=== PATIENT | male | born 1950 | race Caucasian/White ===

== ENCOUNTER 2016-11-27 13:50 | Observation (INO) | payer OTHER ==
[~2016-11-27] VITALS: Ht 190.5 cm; Wt 129.7 kg
[~2016-11-27 13:50] MED LIST: DIAZ5TAB PO; HYDR-971 PO
[2016-11-27] MEDS ORDERED: IV NORMAL SALINE 1000ML BAG 1,000 ML IV SCH (13:59)
[2016-11-27] MEDS ORDERED: 0.9 % SODIUM CHLORIDE 10 ML DISP.SYRIN. IV PRN (14:00)
[2016-11-27] MEDS ORDERED: dilTIAZem IV PUSH 25 MG/5 ML VIAL IVP ONE (14:00)
[2016-11-27 14:09] LABS: BASO % 1 % (0-3); EOS % 4 % (0-3); HEMATOCRIT 44.7 % (39.0-53.0); LYMPH # 1.4 x10^3/uL (1.0-4.8); LYMPH % 15 % (24-48); MEAN CORPUSCULAR HEMOGLOBIN 31 pg (25-35); MEAN CORPUSCULAR HGB CONC 34 g/dL (31-37); MEAN CORPUSCULAR VOLUME 91 fL (79-100); MONO % 7 % (0-9); NEUT % 73 % (31-73); PLATELET COUNT 224 x10^3/uL (140-400); RED BLOOD COUNT 4.89 x10^6/uL (4.30-5.70); RED CELL DISTRIBUTION WIDTH 13.4 % (11.5-14.5); WHITE BLOOD COUNT 9.3 x10^3/uL (4.0-11.0)
--- NOTE | 2016-11-27 14:16 | RAD ---
Indication: Weakness, dizziness and palpitations. Time of exam 1410 hours. Correlation is made with prior chest from 01/23/2016. FINDINGS: The heart size is normal. The lungs are clear. No pleural effusion or pneumothorax is identified. The pulmonary vascularity is normal. IMPRESSION: No acute abnormality detected.
--- NOTE | 2016-11-27 14:17 | PHYS DOC ---
Past Medical History Past Medical History: A-Fib, GERD, High Cholesterol, Hypertension Past Surgical History: Other Additional Past Surgical Histo: CARDIAC ABLATION,HERNIA,BACK Alcohol Use: Occasionally Drug Use: None Adult General Chief Complaint Chief Complaint: Palpitations HPI HPI Patient is a pleasant 56-year-old male with a history of hyperlipidemia hypertension and atrial fibrillation intermittently for last several years and history of cardiac ablation back in 2012. Since November 08, 2016 is an intermittent episodes of palpitations as he perceived as atrial fibrillation. 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 He has a little chest pressure descries as a fullness with no chest pain no radiation to his neck shoulder back or arm. Patient denies any lightheaded dizziness denies any shortness of breath denies any diaphoresis denies any focal neurologic deficits. He denies any trauma denies any recent exercise tolerance changes. Review of Systems Review of Systems Constitutional: Denies fever or chills [] Eyes: Denies change in visual acuity, redness, or eye pain [] HENT: Denies nasal congestion or sore throat [] Respiratory: Denies cough or shortness of breath [] Cardiovascular: No additional information not addressed in HPI [] GI: Denies abdominal pain, nausea, vomiting, bloody stools or diarrhea [] : Denies dysuria or hematuria [] Musculoskeletal: Denies back pain or joint pain [] Integument: Denies rash or skin lesions [] Neurologic: Denies headache, focal weakness or sensory changes [] Endocrine: Denies polyuria or polydipsia [] Current Medications Current Medications Current Medications Medications (Trade) Dose Ordered Sig/Flavia Start Time Stop Time Status Last Admin Dose Admin Diltiazem HCl (Cardizem) 20 mg 1X ONCE 11/27/16 14:00 11/27/16 14:02 DC 11/27/16 14:16 20 MG Ondansetron HCl (Zofran) 4 mg PRN Q8HRS PRN 11/27/16 15:15 11/28/16 15:14 UNV Sodium Chloride (Normal Saline Flush) 10 ml QSHIFT PRN 11/27/16 14:00 Allergies Allergies Allergies Coded Allergies Type Severity Reaction Last Updated Verified Iodine and Iodide Containing Produc Allergy Mild RASH 01/23/16 Yes Physical Exam Physical Exam Patient vital signs noted to be mildly elevated tachycardia normotensive. No tachypnea nor hypoxia Constitutional: Well developed, well nourished, no acute distress, non-toxic appearance. No diaphoresis HENT: Normocephalic, atraumatic, bilateral external ears normal, oropharynx moist, no oral exudates, nose normal. [] Eyes: PERRLA, EOMI, conjunctiva normal, no discharge. [] Neck: Normal range of motion, no tenderness, supple, no stridor. [] Cardiovascular: Irregularly irregular rhythm Lungs & Thorax: Bilateral breath sounds clear to auscultation wheezes RALES or crackles. Abdomen: Bowel sounds normal, soft, no tenderness, no masses, no pulsatile masses. [] Skin: Warm, dry, no erythema, no rash. [] Back: No tenderness, no CVA tenderness. [] Extremities: No tenderness, no cyanosis, no clubbing, ROM intact, no edema. No evidence of DVT no Homans sign. Neurologic: Alert and oriented X 3, normal motor function, normal sensory function, no focal deficits noted. [] Psychologic: Affect normal, judgement normal, mood normal. [] Current Patient Data Vital Signs Vital Signs Date Time Temp Pulse Resp B/P (MAP) Pulse Ox O2 Delivery O2 Flow Rate FiO2 11/27/16 14:58 51 19 91/57 (68) 93 Room Air 11/27/16 13:55 98.3 98.3 Lab Values Laboratory Tests Test 11/27/16 14:00 White Blood Count 9.3 x10^3/uL (4.0-11.0) Red Blood Count 4.89 x10^6/uL (4.30-5.70) Hemoglobin 15.0 g/dL (13.0-17.5) Hematocrit 44.7 % (39.0-53.0) Mean Corpuscular Volume 91 fL (79-100) Mean Corpuscular Hemoglobin 31 pg (25-35) Mean Corpuscular Hemoglobin Concent 34 g/dL (31-37) Red Cell Distribution Width 13.4 % (11.5-14.5) Platelet Count 224 x10^3/uL (140-400) Neutrophils (%) (Auto) 73 % (31-73) Lymphocytes (%) (Auto) 15 % (24-48) L Monocytes (%) (Auto) 7 % (0-9) Eosinophils (%) (Auto) 4 % (0-3) H Basophils (%) (Auto) 1 % (0-3) Neutrophils # (Auto) 6.8 x10^3uL (1.8-7.7) Lymphocytes # (Auto) 1.4 x10^3/uL (1.0-4.8) Monocytes # (Auto) 0.7 x10^3/uL (0.0-1.1) Eosinophils # (Auto) 0.4 x10^3/uL (0.0-0.7) Basophils # (Auto) 0.0 x10^3/uL (0.0-0.2) Prothrombin Time 13.3 SEC (11.7-14.0) Prothrombin Time INR 1.1 (0.8-1.1) D-Dimer (Skyla) 0.31 ug/mlFEU (0.00-0.50) Magnesium Level 1.8 mg/dL (1.8-2.4) Creatine Kinase 236 U/L (39-308) Creatine Kinase MB (Mass) 2.5 ng/mL (0.0-3.6) Creatine Kinase MB Relative Index 1.1 % (0-4) Troponin I Quantitative < 0.017 ng/mL (0.000-0.055) NU-Vwg-K-Type Natriuretic Peptide 189 pg/mL (0-124) H Lipase 129 U/L (73-393) Thyroid Stimulating Hormone (TSH) 1.481 uIU/mL (0.358-3.74) Laboratory Tests 11/27/16 14:00 EKG EKG KG dictated 11/27/2016 1354 demonstrates a 2 Coblation with RVR left axis deviation with left ventricular hypertrophy with aVL greater than 11 mV. No front desk assistant change or T-wave inversions consistent with acute ischemia. Cardiac EKG was read by Dr. Isabel. [] Radiology/Procedures Radiology/Procedures [] Course & Med Decision Making Course & Med Decision Making Pertinent Labs and Imaging studies reviewed. (See chart for details) [Patient with palpitations and A. fib and RVR on arrival at this point cardiac is normal d-dimer was normal chest x-ray is unremarkable EKG is ordered and read by me patient is pain-free at this time. Spoke with nurse practitioner covering for Dr. VILLALOBOS who agrees with admission and will see patient here in the ER again inpatient therapy for A. fib. Impression A. fib paroxysmal nature, chest pain Disposition: Admission to the hospital for anti-coagulation and cardiology evaluation.] Stable for admission. Dragon Disclaimer Dragon Disclaimer This electronic medical record was generated, in whole or in part, using a voice recognition dictation system. Departure Departure Impression: Primary Impression: Chest pain Additional Impression: Atrial fibrillation Disposition: 09 ADMITTED INPATIENT Admitting Physician: Other Condition: GOOD Referrals: PREET BAEZ (PCP) Problem Qualifiers BETTE ISABEL MD November 27, 2016 14:17
[2016-11-27 14:20] LABS: INR 1.1 (0.8-1.1); PROTHROMBIN TIME PATIENT 13.3 SEC (11.7-14.0)
[2016-11-27 14:34] LABS: MAGNESIUM 1.8 mg/dL (1.8-2.4)
[2016-11-27 14:59] LABS: CKMB MASS 2.5 ng/mL (0.0-3.6)
[2016-11-27] MEDS ORDERED: ONDANSETRON PF 4 MG/2 ML VIAL. IV PRN (15:15)
--- NOTE | 2016-11-27 15:42 | EKG ---
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
[2016-11-27] MEDS ORDERED: MAGNESIUM SULFATE 1GM 100 ML IV ONE (16:00)
--- NOTE | 2016-11-27 16:07 | PDOC2 ---
CARDIAC CONSULT DATE OF CONSULT Date of Consult DATE: 11/27/16 TIME: 15:59 REASON FOR CONSULT Reason for Consult: atrial fib REFERRING PHYSICIAN Referring Physician: Dr. Monica Alan SOURCE Source: Chart review, Patient HISTORY OF PRESENT ILLNESS HISTORY OF PRESENT ILLNESS 66 year old male with a history of atrial fibrillation and previous ablation/PVI @ [facility] in 2011. On 11/08/2016 was fatigued and drinking soda when he noted he was back in atrial fibrillation. Had palpitations and was mildly dyspneic and lightheaded, but did not develop chest heaviness or tightness. Denies syncope. Persistent PVCs and atrial fib runs as well as sustained atrial fib since then. Increased his aspirin to 325 mg daily. Had flecainide left from 2013 and tried the "pill in pocket" approach without success. As he has not been sleeping well, had his CPAP equipment checked and was told it was functioning appropriately. 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 EKG with atrial fib with RVR and rate > 100. Bolused with IV diltiazem 20 mg and now bradycardic (had taken metoprolol succinate about 0600 today). Troponin levels not consistent with AMI and no acute changes in EKG. Reason for Visit: AFIB/RVR PAST MEDICAL HISTORY Cardiovascular: AFIB (with previous ablation/PVI - 2011; DCCV in prior to 2011) , HTN, Hyperlipidemia Pulmonary: Other (SERENITY with CPAP @ 11 cm) CENTRAL NERVOUS SYSTEM: Other (denies) GI: GERD Heme/Onc: No pertinent hx Hepatobiliary: No pertinent hx Psych: No pertinent hx Musculoskeletal: No pain Rheumatologic: No pertinent hx Infectious disease: No pertinent hx ENT: Allergic Rhinitis Renal/: No pertinent hx Endocrine: No pertinent hx Dermatology: No pertinent hx PAST SURGICAL HISTORY Past Surgical History: Hernia Repair (RIH), Other (ablation/PVI; lumbar disckectomy - 1996) FAMILY HISTORY Family History: Alzheimer's Disease SOCIAL HISTORY 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 [employer] Smoke: No ALCOHOL: occassional Drugs: None Lives: with Family () CURRENT MEDICATIONS CURRENT MEDICATIONS Current Medications Medications (Trade) Dose Ordered Sig/Flavia Route PRN Reason Start Time Stop Time Status Last Admin Dose Admin Diltiazem HCl (Cardizem) 20 mg 1X ONCE IVP 11/27/16 14:00 5/9/17 14:02 DC 11/27/16 14:16 Sodium Chloride 1,000 ml @ 1,000 mls/hr Q1H IV 11/27/16 13:59 11/27/16 14:58 DC 11/27/16 14:15 ALLERGIES ALLERGIES: Coded Allergies: Iodine and Iodide Containing Produc (Verified Allergy, Mild, RASH, 01/23/16) PHYSICAL EXAM General: Alert, Oriented X3, Cooperative, No acute distress HEENT: Atraumatic, PERRLA Lungs: Clear to auscultation Heart: Normal S1, Normal S2, No murmurs, Other (tele: atrial fib; rates in the upper 50s and lower 60s) Abdomen: Normal bowel sounds, Soft, No tenderness Extremities: No edema, Normal pulses Skin: No rashes Neuro: Normal speech Psych/Mental Status: Mental status NL, Mood NL MUSCULOSKELETAL: No deformity VITALS VITALS Vital Signs Date Time Temp Pulse Resp B/P (MAP) Pulse Ox O2 Delivery O2 Flow Rate FiO2 11/27/16 14:58 51 19 91/57 (68) 93 Room Air 11/27/16 13:55 98.3 98.3 LABS Lab: Laboratory Tests Test 11/27/16 14:00 11/27/16 14:29 White Blood Count 9.3 x10^3/uL (4.0-11.0) Red Blood Count 4.89 x10^6/uL (4.30-5.70) Hemoglobin 15.0 g/dL (13.0-17.5) Hematocrit 44.7 % (39.0-53.0) Mean Corpuscular Volume 91 fL (79-100) Mean Corpuscular Hemoglobin 31 pg (25-35) Mean Corpuscular Hemoglobin Concent 34 g/dL (31-37) Red Cell Distribution Width 13.4 % (11.5-14.5) Platelet Count 224 x10^3/uL (140-400) Neutrophils (%) (Auto) 73 % (31-73) Lymphocytes (%) (Auto) 15 % (24-48) Monocytes (%) (Auto) 7 % (0-9) Eosinophils (%) (Auto) 4 % (0-3) Basophils (%) (Auto) 1 % (0-3) Neutrophils # (Auto) 6.8 x10^3uL (1.8-7.7) Lymphocytes # (Auto) 1.4 x10^3/uL (1.0-4.8) Monocytes # (Auto) 0.7 x10^3/uL (0.0-1.1) Eosinophils # (Auto) 0.4 x10^3/uL (0.0-0.7) Basophils # (Auto) 0.0 x10^3/uL (0.0-0.2) Prothrombin Time 13.3 SEC (11.7-14.0) Prothromb Time International Ratio 1.1 (0.8-1.1) D-Dimer (Skyla) 0.31 ug/mlFEU (0.00-0.50) Magnesium Level 1.8 mg/dL (1.8-2.4) Creatine Kinase 236 U/L (39-308) Creatine Kinase MB (Mass) 2.5 ng/mL (0.0-3.6) Creatine Kinase MB Relative Index 1.1 % (0-4) Troponin I Quantitative < 0.017 ng/mL (0.000-0.055) DW-Dzx-U-Type Natriuretic Peptide 189 pg/mL (0-124) Lipase 129 U/L (73-393) Thyroid Stimulating Hormone (TSH) 1.481 uIU/mL (0.358-3.74) Bedside Troponin I 0.01 ng/ml (<0.08) IMAGES IMAGES CXR: Correlation is made with prior chest from 01/23/2016. FINDINGS: The heart size is normal. The lungs are clear. No pleural effusion or pneumothorax is identified. The pulmonary vascularity is normal. IMPRESSION: No acute abnormality detected. EKG EKG atrial fib RVR; no acute changes ECHOCARDIOGRAM ECHOCARDIOGRAM pending ASSESSMENT/PLAN ASSESSMENT/PLAN 1. atrial fib with RVR Mg low - replace with 1 gram check BMP to evaluate K and renal function TSH WNL dosed with IV diltiazem 20 mg X 1 rate now upper 50s to lower 60s hold ASA and start full OAC with Eliquis 5 mg BID since symptomatic X 3 weeks now and anticipating need for DCCV or CINDY guided DCCV [id number] = 1 (HTN) with 1.3% stroke risk per year; ASA or OAC echo to re-evaluate LA size and assess LV function advised to avoid caffeine for now 2. HTN controlled with meds low normotensive for now 3. HLD treated with statin therapy check FLP in a.m. 4. SERENITY treated with CPAP recent fatigue and insomnia may benefit from repeat sleep study - suspect he needs changes in CPAP setting has pending appt with Dr. Vasu Craig @ [facility]; his sleep physician, in January Problems: LEELA BALDERRAMA APRN November 27, 2016 16:07
[2016-11-27 16:33] LABS: CALCIUM 8.7 mg/dL (8.5-10.1); GFR 75.2
[2016-11-27] MEDS: APIXABAN 5 MG TABLET. PO SCH ×2 (16:51→17:00)
[2016-11-27 19:10] VITALS: BP 142/86
[2016-11-27 23:00] VITALS: BP 124/74
--- NOTE | 2016-11-28 01:34 | HP ---
ADMIT DATE: 11/27/2016 CHIEF COMPLAINT: Chest pain. HISTORY OF PRESENT ILLNESS: The patient is a 66-year-old gentleman with known atrial fibrillation, status post ablation in 2011, currently being followed by Dr. Rothman. 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 He could feel what he calls PVCs in his chest. Also had some chest tightness across the upper chest bilaterally, which felt almost like a muscular pain. This now has completely resolved. He, however, decided that when he had these symptoms, not to proceed with flying and instead presented to the Emergency Room. On further questioning, he relates that he had issues over the past few weeks with atrial fibrillation as well as waking up in the middle of the night with his heart pounding so much so that he actually had his CPAP checked out and this was okay. He actually noted that on 11/08/2016, he had palpitations associated with mild dyspnea and lightheadedness, but without any chest tightness or other symptoms. The symptoms essentially resolved by themselves, although he apparently has been in AFib ever since. In the Emergency Room, he was noted to have atrial fibrillation with RVR above 100. He did receive a diltiazem bolus of 20 mg and had slowed heart rate now. No other labs were concerning for heart issues. He is now admitted for further observation. PAST MEDICAL HISTORY: Atrial fibrillation with previous ablation/PVI in 2011, hypertension, hyperlipidemia, obstructive sleep apnea with CPAP at night and GERD. PAST SURGICAL HISTORY: Hernia repair and lumbar diskectomy. FAMILY HISTORY: No pertinent heart history. Mother with Alzheimer's. SOCIAL HISTORY: He lives with his family. 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 Mildly stressed out over the significant changes in his life. ALLERGIES: IODINE/CONTRAST. MEDICATIONS: MAR reconciled with home medications. REVIEW OF SYSTEMS: Positive as per HPI. Feels a little stressed over, but is coming to chamber worker with the thought that his last flight in 7 weeks is probably not going to happen as he is not allowed to fly with AFib. Denies any current chest symptoms or shortness of breath. Rest of organ system review is negative. PHYSICAL EXAMINATION: VITAL SIGNS: From today show a blood pressure of 112/73, heart rate at 88, respiratory rate at 19. Of note, in the Emergency Room, initial pulse rate was 107 and dropped to 51 at its marcia after Cardizem. GENERAL: This is an obese 66-year-old gentleman, alert and oriented, in no acute distress, very pleasant. HEENT: Shows no scleral icterus. NECK: Supple. LUNGS: Clear. HEART: Irregular, no murmurs appreciated. ABDOMEN: Obese, positive bowel sounds. No organomegaly appreciated. EXTREMITIES: Show no edema. SKIN: Warm, soft and dry without any rash. LABORATORY DATA: CBC with a WBC of 9.3, hemoglobin 15, platelets of 224. Chemistries with a BUN and creatinine of 16 and 1.0, normal electrolytes. Initial troponin less than 0.017, on repeat TSH normal at 1.48. Coags within normal limits. IMAGING: Chest x-ray obtained in the Emergency Room showed no acute abnormality. ASSESSMENT AND PLAN: The patient is a 66-year-old gentleman with apparent atrial fibrillation with mild rapid ventricular response and he has received digoxin x 1. I am not sure what home medications he has taken for rate control. His head waiter/waitress, Dr. Post, has been notified. He essentially has ruled out for acute cardiac issues. Further medication changes are awaited. Although he apparently has had known atrial fibrillation over the past month, no anticoagulation has been started at this point. We will leave choice of shortest of 10A inhibitor to Dr. Rothman. The patient will be started on Lovenox for the time being. TUCKER PAREDES MD DR: LUZ MARINA/patrick JOB#: [id number] / [id number] PREET Juárez
[2016-11-28 03:02] VITALS: BP 108/69
[2016-11-28 05:49] LABS: CALCIUM 8.2 mg/dL (8.5-10.1); CREATININE 0.8 mg/dL (0.7-1.3); GFR 97.3; POTASSIUM 3.9 mmol/L (3.5-5.1)
[2016-11-28 05:53] LABS: CHOLESTEROL/HDL RATIO 2.6
[2016-11-28 07:00] VITALS: BP 123/81
--- NOTE | 2016-11-28 08:51 | EKG ---
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
--- NOTE | 2016-11-28 09:24 | PDOC ---
CARDIO Progress Notes Date and Time Date of Service 11/28/2016 Time of Evaluation 09 Subjective Subjective: No Chest Pain, No shortness of breath, No Palpitations, No Dizziness Vitals Vitals Vital Signs Date Time Temp Pulse Resp B/P (MAP) Pulse Ox O2 Delivery O2 Flow Rate FiO2 11/28/16 07:00 97.8 68 20 123/81 (95) 96 Room Air 97.8 Weight Weight [ ] Input and Output Intake and Output Intake and Output 11/28/16 07:00 Intake Total 1340 ml Balance 1340 ml Intake Oral 240 ml IV Total 1100 ml # Voids 5 Laboratory Labs Laboratory Tests Test 11/27/16 14:00 11/27/16 14:29 11/27/16 21:10 11/28/16 03:35 White Blood Count 9.3 x10^3/uL (4.0-11.0) Red Blood Count 4.89 x10^6/uL (4.30-5.70) Hemoglobin 15.0 g/dL (13.0-17.5) Hematocrit 44.7 % (39.0-53.0) Mean Corpuscular Volume 91 fL (79-100) Mean Corpuscular Hemoglobin 31 pg (25-35) Mean Corpuscular Hemoglobin Concent 34 g/dL (31-37) Red Cell Distribution Width 13.4 % (11.5-14.5) Platelet Count 224 x10^3/uL (140-400) Neutrophils (%) (Auto) 73 % (31-73) Lymphocytes (%) (Auto) 15 % (24-48) Monocytes (%) (Auto) 7 % (0-9) Eosinophils (%) (Auto) 4 % (0-3) Basophils (%) (Auto) 1 % (0-3) Neutrophils # (Auto) 6.8 x10^3uL (1.8-7.7) Lymphocytes # (Auto) 1.4 x10^3/uL (1.0-4.8) Monocytes # (Auto) 0.7 x10^3/uL (0.0-1.1) Eosinophils # (Auto) 0.4 x10^3/uL (0.0-0.7) Basophils # (Auto) 0.0 x10^3/uL (0.0-0.2) Prothrombin Time 13.3 SEC (11.7-14.0) Prothromb Time International Ratio 1.1 (0.8-1.1) D-Dimer (Skyla) 0.31 ug/mlFEU (0.00-0.50) Sodium Level 139 mmol/L (136-145) 140 mmol/L (136-145) Potassium Level 4.0 mmol/L (3.5-5.1) 3.9 mmol/L (3.5-5.1) Chloride Level 102 mmol/L (98-107) 105 mmol/L (98-107) Carbon Dioxide Level 26 mmol/L (21-32) 26 mmol/L (21-32) Anion Gap 11 (6-14) 9 (6-14) Blood Urea Nitrogen 16 mg/dL (8-26) 14 mg/dL (8-26) Creatinine 1.0 mg/dL (0.7-1.3) 0.8 mg/dL (0.7-1.3) Estimated GFR (Cockcroft-Gault) 75.2 97.3 Glucose Level 111 mg/dL (70-99) 85 mg/dL (70-99) Calcium Level 8.7 mg/dL (8.5-10.1) 8.2 mg/dL (8.5-10.1) Magnesium Level 1.8 mg/dL (1.8-2.4) 2.0 mg/dL (1.8-2.4) Creatine Kinase 236 U/L (39-308) Creatine Kinase MB (Mass) 2.5 ng/mL (0.0-3.6) Creatine Kinase MB Relative Index 1.1 % (0-4) Troponin I Quantitative < 0.017 ng/mL (0.000-0.055) < 0.017 ng/mL (0.000-0.055) < 0.017 ng/mL (0.000-0.055) FJ-Jrg-V-Type Natriuretic Peptide 189 pg/mL (0-124) Lipase 129 U/L (73-393) Thyroid Stimulating Hormone (TSH) 1.481 uIU/mL (0.358-3.74) Bedside Troponin I 0.01 ng/ml (<0.08) Triglycerides Level 75 mg/dL (0-150) Cholesterol Level 106 mg/dL (0-200) LDL Cholesterol, Calculated 50 mg/dL (0-100) VLDL Cholesterol, Calculated 15 mg/dL (0-40) Non-HDL Cholesterol Calculated 65 mg/dL (0-129) HDL Cholesterol 41 mg/dL (40-60) Cholesterol/HDL Ratio 2.6 Physical Exam HEENT: Neck Supple W Full Motion Chest: Symmetric LUNGS: Clear to Auscultation Heart: S1S2, RRR, no murmurs, other (tele: atrial fib with controlled ventricular rate - 70s) Abdomen: Soft N/T Extremities: No Edema Neurology: alert, oriented, follow commands Assessment Assessment 1. atrial fib with RVR rate controlled continue OAC with Eliquis BID plan for DCCV in about 3-4 weeks after he has been fully anticoagulated continue rate controlling agents 2. HTN controlled with meds 3. HLD LDLs controlled on statin therapy no changes recommended 4. SERENITY treated with CPAP recent fatigue and insomnia may benefit from repeat sleep study - suspect he needs changes in CPAP setting has pending appt with Dr. Vasu Craig @ [facility]; his sleep physician, in January Plan discharge for later today after seen by primary cardiology Has Leslye zabala f/u on 12/18/2016 @ 14:45 LEELA BALDERRAMA APRN November 28, 2016 09:24
--- NOTE | 2016-11-28 09:29 | CARD ---
APPROVED REPORT EXAM: Two-dimensional and M-mode echocardiogram with Doppler and color Doppler. Other Information Quality : Good Rhythm : Atrial Fibrillation INDICATION Atrial Fibrillation 2D DIMENSIONS RVDd2.9 (2.9-3.5cm)Left Atrium(2D)4.2 (1.6-4.0cm) IVSd1.2 (0.7-1.1cm)Aortic Root(2D)3.9 (2.0-3.7cm) LVDd5.2 (3.9-5.9cm)LVOT Diameter2.5 (1.8-2.4cm) PWd1.2 (0.7-1.1cm)LVDs4.2 (2.5-4.0cm) FS (%) 25.0 %LVEF(%)50.0 (>50%) Aortic Valve AoV Peak Matthew.135.9cm/sAoV VTI20.1cm AO Peak GR.7.4mmHgLVOT VTI 14.68cm AO Mean GR.3mmHgAVA (VTI)3.50cm2 Mitral Valve MV E Spkcestd07.6cm/sMV DECEL CIAN060za TDI Lateral E' P. V15.59cm/sMedial E' P. V15.79cm/s E/Lateral E'5.1E/Medial E'5.0 Tricuspid Valve TR P. Uduholux383rw/sRAP JCTLEKLI1ynNz TR Peak Gr.24eaYjTQHW30yjSg Pulmonary Vein S1 Hhbqljzb88.9cm/sS2 Ndebkzyh17.72cm/s D2 Iratelxl17.7cm/s LEFT VENTRICLE The left ventricle is normal size. There is mild concentric left ventricular hypertrophy. The left ve ntricular systolic function is normal and the ejection fraction is within normal range. The Ejection Fraction is 55%. There is normal LV segmental wall motion. Tissue Doppler imaging reveals mild left v entricular diastolic dysfunction. RIGHT VENTRICLE The right ventricle is normal size. The right ventricular systolic function is normal. ATRIA The left atrium is mildly dilated. The right atrium size is normal. The interatrial septum is intact with no evidence for an atrial septal defect or patent foramen ovale as noted on 2-D or Doppler imagi ng. AORTIC VALVE The aortic valve is sclerotic but opens well and is trileaflet. Doppler and Color Flow revealed trace aortic regurgitation. There is no significant aortic valvular stenosis. MITRAL VALVE The mitral valve is normal in structure and function. There is no evidence of mitral valve prolapse. There is no mitral valve stenosis. Doppler and Color-flow revealed mild mitral regurgitation. TRICUSPID VALVE The tricuspid valve is normal in structure and function. Doppler and Color Flow revealed mild tricusp id regurgitation. The PA pressure was estimated at 35 mmHg. There is no tricuspid valve stenosis. PULMONIC VALVE Doppler and Color Flow revealed trace pulmonic valvular regurgitation. There is no pulmonic valvular stenosis. GREAT VESSELS The aortic root is normal in size. The ascending aorta is not well seen. The IVC is normal in size an d collapses >50% with inspiration. PERICARDIAL EFFUSION There is no evidence of significant pericardial effusion. Critical Notification Critical Value: No <Conclusion> The left ventricular systolic function is normal and the ejection fraction is within normal range. Th e Ejection Fraction is 55%. There is normal LV segmental wall motion. Doppler and Color Flow revealed mild tricuspid regurgitation. The PA pressure was estimated at 35 mmH g.
[2016-11-28] MEDS: APIXABAN 5 MG TABLET. PO SCH (10:17)
[2016-11-28] MEDS ORDERED: ATOR40TA59 PO (10:24)
[2016-11-28] MEDS ORDERED: METO25TA9 PO (10:24)
[2016-11-28] MEDS ORDERED: OMEP20CA9 PO (10:24)
[2016-11-28] MEDS ORDERED: QUIN20TA7 PO (10:24)
[2016-11-28 11:00] VITALS: BP 125/75
--- NOTE | 2016-11-28 14:58 | PDOC ---
PROGRESS NOTES Chief Complaint Chief Complaint Afib w/RVR ASSESSMENT AND PLAN: 1. Afib: longstanding hx, although had (successful) cardioversion 5 yrs ago, now unfortunately recurrent. appreciate cardiology service input. obs for determination of cardioversion in near future. currently, good rate control, off any cards meds since single dose of IV cardizem 2. OAC: initiated today with eliquis 3. Dispo: home today with close F/U with Dr Rothman History of Present Illness History of Present Illness feels great, no palpitations. Vitals Vitals Vital Signs Date Time Temp Pulse Resp B/P (MAP) Pulse Ox O2 Delivery O2 Flow Rate FiO2 11/28/16 11:00 98.5 90 18 125/75 (92) 95 Room Air 98.5 Physical Exam General: Alert, Oriented X3, Cooperative, No acute distress Heart: Normal S1, Normal S2, No murmurs, Other (tele: atrial fib; rates in the upper 50s and lower 60s) Abdomen: Normal bowel sounds, Soft, No tenderness Extremities: No edema, Normal pulses Skin: No rashes Labs LABS Laboratory Tests Test 11/27/16 21:10 11/28/16 03:35 Troponin I Quantitative < 0.017 ng/mL (0.000-0.055) < 0.017 ng/mL (0.000-0.055) Sodium Level 140 mmol/L (136-145) Potassium Level 3.9 mmol/L (3.5-5.1) Chloride Level 105 mmol/L (98-107) Carbon Dioxide Level 26 mmol/L (21-32) Anion Gap 9 (6-14) Blood Urea Nitrogen 14 mg/dL (8-26) Creatinine 0.8 mg/dL (0.7-1.3) Estimated GFR (Cockcroft-Gault) 97.3 Glucose Level 85 mg/dL (70-99) Calcium Level 8.2 mg/dL (8.5-10.1) Magnesium Level 2.0 mg/dL (1.8-2.4) Triglycerides Level 75 mg/dL (0-150) Cholesterol Level 106 mg/dL (0-200) LDL Cholesterol, Calculated 50 mg/dL (0-100) VLDL Cholesterol, Calculated 15 mg/dL (0-40) Non-HDL Cholesterol Calculated 65 mg/dL (0-129) HDL Cholesterol 41 mg/dL (40-60) Cholesterol/HDL Ratio 2.6 TUCKER PAREDES MD November 28, 2016 14:58
[2016-11-28 15:00] VITALS: BP 118/77
[2016-11-28] MEDS ORDERED: APIX5TAB PO (16:40)
--- NOTE | 2016-12-01 02:02 | DS ---
DATE OF DISCHARGE: 11/28/2016 CHIEF COMPLAINT: AFib with RVR. HOSPITAL COURSE: The patient is a 66-year-old gentleman with longstanding history of AFib, status post cardioversion 5 years ago with recurrence, probably 3 weeks ago. His marketing clerk, Dr. Rothman was consulted. The patient was started on anticoagulation after rate control was achieved with initially IV Cardizem and later switched to p.o. He was discharged with close followup with Dr. Rothman for plans of repeat cardioversion on an outpatient basis. DISCHARGE EXAMINATION: Please refer to note from same date. DISCHARGE DISPOSITION: To home. DISCHARGE CONDITION: Improved. DISCHARGE DIAGNOSIS: Recurrent atrial fibrillation with rapid ventricular response. DISCHARGE MEDICATIONS: Please refer to MAR. DISCHARGE INSTRUCTIONS: The patient will follow up with Dr. Rothman in 3-4 weeks. TUCKER PAREDES MD DR: LUZ MARINA/nts JOB#: [id number] / [id number] PREET Juárez
== END 2016-11-28 18:00 | disposition home or self-care (01) ==
LOC: ER 13:50 → 4 NORTH 17:20
PROVIDERS: ADMIT Internal Medicine Hematology & Oncology; ATTEND Internal Medicine Hematology & Oncology
DX: I48.91 Unspecified atrial fibrillation (principal); I49.3 Ventricular premature depolarization; I10 Essential (primary) hypertension; E78.5 Hyperlipidemia, unspecified; G47.33 Obstructive sleep apnea (adult) (pediatric); Q87.0 Congenital malformation syndromes predominantly affecting facial appearance; E78.00 Pure hypercholesterolemia, unspecified; K21.9 Gastro-esophageal reflux disease without esophagitis; Z79.01 Long term (current) use of anticoagulants; Z82.0 Family history of epilepsy and other diseases of the nervous system
CPT/HCPCS: 36415; 71010; 80048; 80061; 82550; 82553; 83690; 83735; 83880; 84443; 84484; 85027; 85379; 85610; 93005; 93306; 96361; 96365; 96375; 99285; G0378; J3475; J3490; J7030; G0379

== ENCOUNTER → 2017-03-13 | Outpatient (CLI) | payer MEDICARE, OTHER ==
[~2017-03-13] MED LIST changes: +APIX5TAB PO; +ATOR40TA59 PO; +METO25TA9 PO; +OMEP20CA9 PO; +QUIN20TA7 PO
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
== END | disposition home or self-care (01) ==
LOC: KCIC 10:49
PROVIDERS: ATTEND Nurse Practitioner
DX: S92.514A Nondisplaced fracture of proximal phalanx of right lesser toe(s), initial encounter for closed fracture (principal); X58.XXXA Exposure to other specified factors, initial encounter; Y93.89 Activity, other specified; Y92.89 Other specified places as the place of occurrence of the external cause; Y99.8 Other external cause status
CPT/HCPCS: 73660